=== PATIENT | male | born 1975 | race Caucasian/White ===

== ENCOUNTER 2017-11-21 11:08 | Emergency (ER) | payer OTHER ==
[~2017-11-21] VITALS: Ht 182.9 cm; Wt 68.0 kg
[2017-11-21] MEDS ORDERED: AUGMENTIN 875-1 EACH PO (12:00)
[2017-11-21 12:17] VITALS: BP 119/83
== END 2017-11-21 12:18 | disposition home or self-care (01) ==
LOC: M.ERS 11:08
DX: S61.451A Open bite of right hand, initial encounter (principal); F17.200 Nicotine dependence, unspecified, uncomplicated; W54.0XXA Bitten by dog, initial encounter; Y93.89 Activity, other specified; Y92.89 Other specified places as the place of occurrence of the external cause; Y99.8 Other external cause status